=== PATIENT | male | born 1975 | race African-American/Black ===

== ENCOUNTER 2019-04-26 20:57 | Emergency (ER) | payer OTHER ==
[~2019-04-26] VITALS: Ht 180.3 cm; Wt 90.7 kg
[2019-04-26 21:29] VITALS: BP 126/74
== END 2019-04-27 00:24 | disposition home or self-care (01) ==
LOC: ER 21:01
DX: S93.401A Sprain of unspecified ligament of right ankle, initial encounter (principal); R60.9 Edema, unspecified; W21.05XA Struck by basketball, initial encounter; Y93.67 Activity, basketball; Y92.39 Other specified sports and athletic area as the place of occurrence of the external cause; Y99.8 Other external cause status
CPT/HCPCS: 73610

== ENCOUNTER 2019-11-15 23:05 | Emergency (ER) | payer OTHER ==
[~2019-11-15] VITALS: Ht 180.3 cm; Wt 88.5 kg
[2019-11-15 23:20] VITALS: BP 143/91
[2019-11-16] MEDS ORDERED: LIDOCAINE 1% HCL (LOCAL ANESTH.) INJ 20ML MDV ONE (00:52)
[2019-11-16] MEDS ORDERED: LIDOCAINE 1% HCL (LOCAL ANESTH.) INJ 20ML MDV IJ ONE (01:00)
== END 2019-11-16 01:17 | disposition home or self-care (01) ==
LOC: ER 23:09
DX: S60.455A Superficial foreign body of left ring finger, initial encounter (principal); W45.8XXA Other foreign body or object entering through skin, initial encounter; Y93.89 Activity, other specified; Y92.89 Other specified places as the place of occurrence of the external cause; Y99.8 Other external cause status
CPT/HCPCS: 10120; 73130; 99285; J2001; 12041